=== PATIENT | male | born 1995 | race Caucasian/White ===

== ENCOUNTER 2016-07-25 09:58 | Emergency (ER) | payer BC ==
[~2016-07-25] VITALS: Ht 175.3 cm; Wt 100.2 kg
[~2016-07-25 09:58] MED LIST: ZOFRAN ODT8 MG PO; [UNRECOGNIZED DRUG - REMARK]
[2016-07-25] MEDS ORDERED: KEFLEX500 MG PO (11:34)
[2016-07-25 12:04] VITALS: BP 125/63
== END 2016-07-25 12:04 | disposition home or self-care (01) ==
LOC: EME 09:58
PROC: 3E0234Z Introduction of Serum, Toxoid and Vaccine into Muscle, Percutaneous Approach (ICD-10-PCS; principal; 2016-07-25)
DX: S61.247A Puncture wound with foreign body of left little finger without damage to nail, initial encounter (principal); W26.8XXA Contact with other sharp object(s), not elsewhere classified, initial encounter; W45.8XXA Other foreign body or object entering through skin, initial encounter; W20.8XXA Other cause of strike by thrown, projected or falling object, initial encounter; Z23 Encounter for immunization
CPT/HCPCS: 73140; 99281; 99284